=== PATIENT | male | born 1995 | race Caucasian/White ===

== ENCOUNTER 2020-04-27 21:12 | Emergency (ER) | payer SELFPAY ==
[~2020-04-27] VITALS: Ht 195.6 cm; Wt 131.1 kg
[2020-04-27 21:12] VITALS: BP 150/90
--- NOTE | 2020-04-27 21:15 | NUR ---
PT BROUGHT TO BED 11. PTS FACE CLEANED UP AND BLEEDING CONTROLLED. PT VOMITING X1.
--- NOTE | 2020-04-27 21:20 | NUR ---
25 YO M [employer] FOR PRE[employer]OOK DUE TO INJURIES OBTAINED WHILE BEING COMBATIVE DURING ARREST, PT WAS ARRESTED FOR DUI. PT CAME IN WITH SWOLLEN SHUT R EYE AND BLEEDING NOSE. PT VOMITING X1. PT DENIES FEVER, COUGH, SOB. MED HX: DENIES NO RX NKA Addendum: 04/27/20 at 2134 by [email or web address] 25 YO M [email or web address] FOR PREBOOK DUE TO INJURIES OBTAINED WHILE BEING COMBATIVE DURING ARREST, PT WAS ARRESTED FOR DUI. PT CAME IN WITH SWOLLEN SHUT R EYE AND BLEEDING NOSE. PT STATES / PAIN ON R EYE. PT VOMITING X1. PT DENIES FEVER, COUGH, SOB. MED HX: DENIES NO RX NKA
[2020-04-27] MEDS ORDERED: KETOROLAC 60 MG/2 ML VIAL IM ONE ×2 (21:25→21:27)
[2020-04-27] MEDS ORDERED: TETRACAINE HCL/PF 0.5% OPTH 4 ML BTL ONE (21:33)
--- NOTE | 2020-04-27 21:34 | NUR ---
VALENCIA UNDERWOOD AT BEDSIDE PERFORMING EYE EXAM WITH TETRACAINE
[2020-04-27] MEDS ORDERED: TETRACAINE HCL/PF 0.5% OPTH 4 ML BTL OP ONE (21:35)
[2020-04-27] MEDS ORDERED: MORPHINE SULFATE 4 MG/ML SYR ONE (21:49)
[2020-04-27] MEDS ORDERED: MORPHINE SULFATE 4 MG/ML SYR IM ONE (21:50)
--- NOTE | 2020-04-27 21:52 | NUR ---
PTS PAIN STILL 9/10 MOST IM TORODOL BUT PT REFUSING IM MORPHINE, DENIES NEED FOR FURTHER PAIN CONTROL. Addendum: 04/27/20 at 2153 by [email or web address] PTS PAIN STILL 9/10 POST IM TORODOL BUT PT REFUSING IM MORPHINE, DENIES NEED FOR FURTHER PAIN CONTROL.
--- NOTE | 2020-04-27 21:55 | NUR ---
PT TAKEN TO CT VIA WHEELCHAIR. POLICE TO FOLLOW PT WITH PLASTIC JIG AND FIXTURE BUILDER
--- NOTE | 2020-04-27 22:06 | NUR ---
PT RETURNED FROM CT. PLACED IN [facility]. PT GIVEN WATER PER REQUEST.
--- NOTE | 2020-04-27 23:03 | NUR ---
IV ESTABLISHED IN R AC 20 G, PT TOLERATED WELL. LABS COLLECTED AND SENT TO LAB.
--- NOTE | 2020-04-27 23:11 | NUR ---
KELLEY SWAB COLLECTED AND SENT TO LAB
[2020-04-27 23:18] LABS: BASOPHILS % (AUTO) 0.3 % (0.0-2.0); EOSINOPHILS % (AUTO) 0.1 % (0.0-4.0); HEMATOCRIT 39.6 % (36-52); HEMOGLOBIN 13.8 g/dL (12.0-18.0); LYMPHOCYTES # (AUTO) 0.7 K/uL (2.0-11.5); MEAN CORPUSCULAR HEMOGLOBIN 30 pg (27-31); MEAN CORPUSCULAR HGB CONC 35 g/dL (33-37); MEAN CORPUSCULAR VOLUME 86.6 fL (80-94); MONOCYTES # (AUTO) 0.5 K/uL (0.8-1.0); MONOCYTES % (AUTO) 4.3 % (1.7-9.3); NEUTROPHILS # (AUTO) 10.1 K/uL (1.8-7.7); PLATELET COUNT (AUTO) 256 K/uL (140-450); RED BLOOD CELL COUNT(AUTO) 4.57 MIL/uL (4.20-6.10); RED CELL DISTRIBUTION WIDTH 13.7 % (11.6-13.7); WHITE BLOOD COUNT (AUTO) 11.3 K/uL (4.8-10.8)
[2020-04-27 23:19] LABS: ANION GAP 14.4 (8-16); CREATININE 0.8 mg/dL (0.6-1.3); POTASSIUM 3.4 mmol/L (3.5-5.1)
[2020-04-27 23:31] LABS: NEUTROPHILS % (AUTO) 89.3 % (42.2-75.2)
--- NOTE | 2020-04-28 | NUR ---
PT CALM AND ASLEEP IN BED, RR EVEN AND UNLABORED. BED LOCKED AND IN LOWEST POSITION. [place] [employer] AT BEDSIDE.
--- NOTE | 2020-04-28 01:08 | NUR ---
ANGÉLICA FROM [facility] NEEDS FAXED OVER [phone] REQUESTING FAX OF FACE SHEET, ER NOTES/CONSULTS, LAB RESULTS, COVID RESULTS, CT IMAGING, MED LIST
--- NOTE | 2020-04-28 02:16 | NUR ---
SPOKE WITH ROSA PERES FROM [facility] [place] TO GIVE REPORT ON PT. ALL QUESTIONS ANSWERED. Addendum: 04/28/20 at 0229 by [email or web address] SPOKE WITH ROSA PERES FROM [facility] [place] TO GIVE REPORT ON PT. ALL QUESTIONS ANSWERED. [phone]
--- NOTE | 2020-04-28 02:24 | NUR ---
REPORT GIVEN TO [facility]
[2020-04-28 02:33] VITALS: BP 122/52
--- NOTE | 2020-04-28 02:33 | NUR ---
Patient to be transferred to [facility]. Is being transferred due to HIGHER LEVEL OF CARE. Receiving facility has accepting physician and available space. ER physician has signed transfer form. Patient or responsible alliance party has agreed to transfer and signed form. Patient belongings inventoried and will be sent with patient. Copy of nursing notes, lab reports, EKG, Physicians Orders and X-rays to be sent with patient. Report called to ROSA PERES at receiving facility. [facility] ambulance service IN ROUTE TO FACILITY.
== END 2020-04-28 02:33 | disposition short-term general hospital (02) ==
LOC: MED 21:12
DX: S02.85XA Fracture of orbit, unspecified, initial encounter for closed fracture (principal); S05.11XA Contusion of eyeball and orbital tissues, right eye, initial encounter; E11.9 Type 2 diabetes mellitus without complications; I10 Essential (primary) hypertension; Z98.890 Other specified postprocedural states; Z20.828 Contact with and (suspected) exposure to other viral communicable diseases; X50.9XXA Other and unspecified overexertion or strenuous movements or postures, initial encounter; Y93.89 Activity, other specified; Y92.89 Other specified places as the place of occurrence of the external cause; Y99.8 Other external cause status
CPT/HCPCS: 36415; 70480; 80048; 85025; 87426; 96372; 99284; J1885; J2270